=== PATIENT | female | born 1975 | race African-American/Black ===

== ENCOUNTER 2016-07-21 16:12 | Emergency (ER) | payer OTHER ==
[~2016-07-21] VITALS: Ht 165.1 cm; Wt 77.0 kg
[~2016-07-21 16:12] MED LIST: CLON2 PO; HYDR12TA3 PO; MIRT15 PO; ZOLP10 PO
[2016-07-21] MEDS ORDERED: ONDANSETRON HCL 4 MG/2 ML VIAL IVP ONE (17:15)
[2016-07-21] MEDS ORDERED: SODIUM CHLORIDE 0.9% 1,000 ML IV ONE (17:15)
[2016-07-21 17:23] LABS: BASOPHILS % (AUTO) 0.1 % (0.0-2.0); EOSINOPHILS # (AUTO) 0.03 K/uL (0.00-0.70); HEMATOCRIT 43.4 % (36-46); LYMPHOCYTES # (AUTO) 0.9 K/uL (1.0-4.8); LYMPHOCYTES % (AUTO) 13.6 % (22.0-44.0); MEAN CORPUSCULAR HEMOGLOBIN 32.2 pg (26.0-34.0); MEAN CORPUSCULAR HGB CONC 32.1 G/dL (31.0-37.0); MEAN CORPUSCULAR VOLUME 100 fL (80-100); MONOCYTES # (AUTO) 0.3 K/uL (0.1-1.0); MONOCYTES % (AUTO) 4.5 % (2.0-9.0); NEUTROPHILS # (AUTO) 5.2 K/uL (1.8-7.7); NEUTROPHILS % (AUTO) 81.4 % (40.0-70.0); PLATELET COUNT (AUTO) 216 K/uL (150-450); RED BLOOD CELL COUNT(AUTO) 4.33 MIL/uL (4.00-5.20); RED CELL DISTRIBUTION WIDTH 15.8 % (11.5-14.5); WHITE BLOOD COUNT (AUTO) 6.3 K/uL (4.5-11.0)
[2016-07-21 17:33] LABS: ANION GAP 7 mmol/L (8-16); CARBON DIOXIDE 31 mmol/L (22-29); CHLORIDE 101 mmol/L (98-107); CREATININE 0.92 mg/dL (0.60-1.30); GLOMERULAR FILTR. RATE CALC > 60 mL/min (>60); POTASSIUM 3.8 mmol/L (3.5-5.1); SODIUM SERUM 139 mmol/L (136-145); UREA NITROGEN, BLOOD 4 mg/dL (7-18)
[2016-07-21 17:40] LABS: ALANINE AMINOTRANSFERASE 41 U/L (12-78); ALBUMIN 3.2 g/dL (3.4-5.0); ASPARTATE AMINOTRANSFERASE 113 U/L (15-37); BILIRUBIN,TOTAL 0.7 mg/dL (0.1-1.0); TOTAL PROTEIN, SERUM 6.9 g/dL (6.4-8.2)
[2016-07-21 17:59] LABS: VALPROIC ACID < 3 mcg/mL (50-100)
[2016-07-21] MEDS ORDERED: PROMETHAZINE HCL 25 MG/ML VIAL IM ONE (18:00)
[2016-07-21] MEDS ORDERED: LevETIRAcetam 1,000 MG in DEXTROSE 5%-WATER 100 ML IV ONE (18:30)
[2016-07-21] MEDS ORDERED: HYDROmorphone 2 MG/ML SYRINGE IVP ONE (18:30)
[2016-07-21 19:40] LABS: APPEARANCE,URINE CLEAR (CLEAR); GLUCOSE, URINE (UA) NEGATIVE (NEGATIVE); KETONES,URINE NEGATIVE (NEGATIVE); LEUKOCYTE ESTERASE ,URINE NEGATIVE (NEGATIVE); OCCULT BLOOD,URINE NEGATIVE (NEGATIVE); PROTEIN,URINE TRACE (NEGATIVE)
[2016-07-21 19:43] LABS: ADD UA MICROSCOPIC NO
[2016-07-21 19:44] VITALS: BP 148/90
[2016-07-21] MEDS ORDERED: LORazepam 2 MG/ML VIAL IVP ONE (20:00)
== END 2016-07-21 20:34 | disposition home or self-care (01) ==
LOC: EMS 16:13
DX: G40.909 Epilepsy, unspecified, not intractable, without status epilepticus (principal); R10.13 Epigastric pain; F13.239 Sedative, hypnotic or anxiolytic dependence with withdrawal, unspecified; I10 Essential (primary) hypertension; K21.9 Gastro-esophageal reflux disease without esophagitis; F17.210 Nicotine dependence, cigarettes, uncomplicated; Z88.5 Allergy status to narcotic agent; Z91.010 Allergy to peanuts
CPT/HCPCS: 36415; 74010; 80053; 80164; 80185; 80307; 81003; 83690; 84703; 85025; 96361; 96365; 96372; 96375; 99285; G0480; J0712; J1170; J2060; J2550; J7030; J7060